=== PATIENT | male | born 1945 | race Two or more races ===

== ENCOUNTER 2017-05-10 08:33 | Emergency (ER) | payer OTHER ==
[~2017-05-10] VITALS: Ht 162.6 cm; Wt 77.1 kg
[~2017-05-10 08:33] MED LIST: COZAAR100 MG; METOPROLOL SUCC50 MG
[2017-05-10] MEDS ORDERED: ASA81 MG PO (14:54)
[2017-05-10] MEDS ORDERED: ARICEPT10 MG PO (14:54)
== END 2017-05-10 15:25 | disposition home or self-care (01) ==
LOC: ER 08:33 → CPU-OBS 09:23 → ER 09:23
DX: R07.89 Other chest pain (principal); G30.0 Alzheimer's disease with early onset; F02.80 Dementia in other diseases classified elsewhere, unspecified severity, without behavioral disturbance, psychotic disturbance, mood disturbance, and anxiety; R41.0 Disorientation, unspecified; I10 Essential (primary) hypertension
CPT/HCPCS: 70551

== ENCOUNTER → 2019-08-24 | Emergency (ER) | payer OTHER ==
[~2019-08-24] VITALS: Ht 170.2 cm; Wt 68.0 kg
[~2019-08-24] MED LIST changes: +ARICEPT10 MG PO; +ASA81 MG PO
== END | disposition left against medical advice (07) ==
LOC: ER 12:00
DX: U07.1 COVID-19 (principal); J12.89 Other viral pneumonia

== ENCOUNTER 2019-08-28 15:34 | Inpatient (IN) | payer OTHER ==
[~2019-08-28] VITALS: Ht 165.1 cm; Wt 64.9 kg
--- NOTE | 2019-08-28 16:07 | NUR ---
PTE REFIERE DOLOR EN EL CUERPO DESDE EL SE TEE S/V Y SE UBICA EN AREA DE COVID 19
--- NOTE | 2019-08-28 16:58 | NUR ---
PTE ALERTA Y OTRIENTADO X3, SE LE TEE MUESTRAS DE LAB. REJI ORDEN MEDICA BAJO MEDIDAS ASEPTICAS. SE CANALIZA AREA STEVE DE EDEMA Y DE ENROJECIMIENTO. SE LE ADMINISTRAN MEDICAMENTOS REJI ORDEN MEDICA Y SE EDUCA SOBRE TRATAMIENTO MEDICO.
== END 2019-08-31 18:49 | disposition home or self-care (01) | DRG 177 ==
LOC: ER 15:34 → MEDJ 20:50 → SEC-K 20:50 → MEDJ 08-29 01:08
PROVIDERS: ADMIT Internal Medicine; ATTEND Internal Medicine
PROC: 4A033R1 Measurement of Arterial Saturation, Peripheral, Percutaneous Approach (ICD-10-PCS; principal; 2019-08-28)
PROC: 3E0F7GC Introduction of Other Therapeutic Substance into Respiratory Tract, Via Natural or Artificial Opening (ICD-10-PCS; 2019-08-28)
PROC: 8E0ZXY6 Isolation (ICD-10-PCS; 2019-08-28)
PROC: 4A12X4Z Monitoring of Cardiac Electrical Activity, External Approach (ICD-10-PCS; 2019-08-29)
DX: U07.1 COVID-19 (principal); J12.89 Other viral pneumonia; E86.0 Dehydration; E87.8 Other disorders of electrolyte and fluid balance, not elsewhere classified; I10 Essential (primary) hypertension; R53.81 Other malaise; R53.1 Weakness; E11.65 Type 2 diabetes mellitus with hyperglycemia; H40.9 Unspecified glaucoma; Z79.4 Long term (current) use of insulin

== ENCOUNTER 2020-10-14 08:00 | Outpatient (CLI) | payer OTHER | END 2020-10-14 08:30 | disposition home or self-care (01) | LOC: PPH VACUNA 08:00 | DX: Z23 Encounter for immunization (principal) ==

== ENCOUNTER → 2023-03-21 13:48 | Outpatient (CLI) | payer OTHER | END | disposition home or self-care (01) | LOC: LAB 13:48 | PROVIDERS: ATTEND Urology | DX: R97.20 Elevated prostate specific antigen [PSA] (principal) ==

== ENCOUNTER 2023-04-03 11:01 | Emergency (ER) | payer OTHER ==
[~2023-04-03] VITALS: Ht 162.6 cm; Wt 72.6 kg
[2023-04-03] MEDS ORDERED: GLUMETZA1000 MG PO (11:03)
[2023-04-03] MEDS ORDERED: DIPHENHYDRAMINE HCL 50 MG/ML VIAL 1ML IV ONE (11:30)
[2023-04-03] MEDS ORDERED: METHYLPREDNISOLONE SOD SUCC 125 MG VIAL IV ONE (11:30)
[2023-04-03 11:42] LABS: HEMATOCRIT 43.1 % (39.0-48.0); HEMOGLOBIN 14.7 g/dL (13-16.00); MEAN CELL VOLUME 87.1 fL (80.0-100.00); MEAN CORPUSCULAR HEMOGLOBIN 29.7 pg (27.00-32.0); MEAN CORPUSCULAR HGB CONC 34.1 g/dl (32.0-36.0); PLATELET COUNT 312 K/uL (150-450); RED BLOOD COUNT 4.95 M/uL (4.00-6.00); RED CELL DISTRIBUTION WIDTH 13.7 % (11.5-14.5)
[2023-04-03] MEDS ORDERED: EPINEPHRINE HCL/PF 1 MG/ML AMPUL SUBCUTANEO ONE (12:15)
[2023-04-03] MEDS ORDERED: BENADRYL ALLERG50 MG PO (13:31)
[2023-04-03] MEDS ORDERED: BACTRIM DS TAB1 EACH PO (13:31)
== END 2023-04-03 13:38 | disposition home or self-care (01) ==
LOC: ER 11:01
PROVIDERS: General Practice
DX: T78.49XA Other allergy, initial encounter (principal); Z91.013 Allergy to seafood; E11.9 Type 2 diabetes mellitus without complications; Z79.84 Long term (current) use of oral hypoglycemic drugs; I10 Essential (primary) hypertension
CPT/HCPCS: 36415; 96372; 99282; J1200; J2930

== ENCOUNTER 2025-01-25 16:12 | Emergency (ER) | payer OTHER ==
[~2025-01-25] VITALS: Ht 162.6 cm; Wt 72.6 kg
[~2025-01-25 16:12] MED LIST changes: +BACTRIM DS TAB1 EACH PO; +BENADRYL ALLERG50 MG PO; +GLUMETZA1000 MG PO
[2025-01-25] MEDS ORDERED: JANUVIA25 MG (16:35)
[2025-01-25] MEDS ORDERED: SERTRALINE HCL50 MG (16:36)
[2025-01-25] MEDS ORDERED: GALANTAMINE HBR8 MG (16:36)
[2025-01-25] MEDS ORDERED: FAMOTIDINE/PF 20 MG in 0.9 % SODIUM CHLORIDE 8 ML IV PUSH SCH (17:50)
[2025-01-25] MEDS ORDERED: ONDANSETRON HCL 2 MG/ML VIAL IV PRN (18:00)
[2025-01-25] MEDS ORDERED: ATORVASTATIN CALCIUM 40 MG TABLET PO ONE (18:00)
[2025-01-25] MEDS ORDERED: 0.9 % SODIUM CHLORIDE 1,000 ML IV ONE (18:00)
[2025-01-25] MEDS ORDERED: FAMOTIDINE/PF 20 MG/2 ML VIAL ONE (19:03)
[2025-01-25] MEDS ORDERED: ONDANSETRON HCL 2 MG/ML VIAL ONE (19:07)
[2025-01-25 19:13] LABS: ERYTHROCYTE SEDIMENTATION RATE 39 mm/hr (0-20)
[2025-01-25 19:17] LABS: BASO % 0.3 % (0.1-1.2); EOS # 0.04 (0.04-0.54); EOS % 0.3 % (0.7-7.0); LYMPH # 0.60 (1.18-3.74); LYMPH % 4.9 % (19.3-53.1); MEAN PLATELET VOLUME 9.20 fl (9.4-12.4); MONO # 0.64 (0.24-0.82); MONO % 5.2 % (4.7-12.5); NEUT # 10.75 (1.56-6.13); NEUT % 88.0 % (34.0-71.1); RED CELL DISTRIBUTION WIDTH 13.6 % (11.6-14.4)
[2025-01-25 19:34] LABS: INR 0.99
[2025-01-25 19:42] LABS: ALT/SGPT 29.0 U/L (12-78); AST/SGOT 20.0 U/L (15-37); BILIRUBIN TOTAL 0.26 mg/dL (0.3-1.2); BUN CREA RATIO 26.0 (7.0-25.0); CREATININE SERUM 0.9 mg/dL (0.70-1.30); GFR 81.19; GLOBULINA 3.5 G/DL (2.4-3.5); GLUCOSE FASTING 196.0 mg/dL (65-100); OSMOLALITY SERUM 283.0 MOSM/KG (275-295)
[2025-01-25 19:55] LABS: COVID-19 AG NEGATIVE (NEGATIVE)
[2025-01-25 21:53] LABS: URINE APPEARANCE Clear; URINE BILIRRUBIN Negative (NEGATIVE); URINE BLOOD Negative; URINE COLOR Yellow; URINE KETONE Negative (NEGATIVE); URINE LEUKOCYTE Negative; URINE NITRATE Negative; URINE PROTEIN Negative (NEGATIVE); URINE UROBILINOGEN 1.0 E.U./dl
[2025-01-25 21:57] LABS: URINE BACTERIA 11.4 uL (0.0-1933)
[2025-01-25 22:04] LABS: URINE CAST 0.00 uL (0.0-1.40); URINE EPITHELIAL CELLS 0.1 uL (0.0-38.8); URINE GLUCOSE 250 MG/DL (NEGATIVE); URINE RBC 0.8 uL (0.0-20.8); URINE WBC 0.7 uL (0.0-23.2)
[2025-01-25] MEDS ORDERED: PROMETHAZINE HCL 25 MG/ML AMPUL IM ONE (23:00)
[2025-01-25] MEDS ORDERED: ANTIVERT25 M2 PO (23:30)
[2025-01-25] MEDS ORDERED: LIPITOR40 MG PO (23:30)
[2025-01-26] MEDS ORDERED: PROMETHAZINE HCL 25 MG/ML AMPUL ONE (00:10)
== END 2025-01-26 02:27 | disposition home or self-care (01) ==
LOC: ER 16:12
DX: R42 Dizziness and giddiness (principal); I10 Essential (primary) hypertension; Z85.46 Personal history of malignant neoplasm of prostate; Z20.822 Contact with and (suspected) exposure to COVID-19; Z91.013 Allergy to seafood; E78.49 Other hyperlipidemia
CPT/HCPCS: 36415; 70450; 71045; 72040; 93005; 96365; 96366; 99284; J2405; J3490; J7030